=== PATIENT | female | born 1990 | race African-American/Black ===

== ENCOUNTER 2017-03-15 21:57 | Emergency (ER) | payer MEDICAID ==
[~2017-03-15] VITALS: Ht 170.2 cm; Wt 82.0 kg
[2017-03-16] MEDS ORDERED: ONDANSETRON 4MG ODT PO ONE (04:30)
[2017-03-16 04:36] LABS: BASOPHILS % 0.2 % (0.0-2.0); HEMOGLOBIN. 12.9 g/dL (12.0-16.0); LYMPHOCYTES % 14.8 % (20.0-50.0); MEAN CORPUSCULAR HEMOGLOBIN 28.1 pg (28.0-32.0); MEAN CORPUSCULAR VOLUME 86.8 fL (81.0-99.0); MEAN PLATELET VOLUME 8.6 fl (7.4-10.4); MONOCYTES % 3.1 % (2.0-8.0); NEUTROPHILS % 81.9 % (40.0-76.0); PLATELET 355 x1000/uL (130-400); RED BLOOD CELL COUNT 4.61 mill/uL (4.2-5.4)
[2017-03-16 04:52] LABS: CARBON DIOXIDE 30 mEq/L (21-32); CHLORIDE 106 mEq/L (98-107)
[2017-03-16 07:42] VITALS: BP 106/61
== END 2017-03-16 08:31 | disposition home or self-care (01) ==
LOC: ER 22:05
DX: R11.2 Nausea with vomiting, unspecified (principal); S62.340A Nondisplaced fracture of base of second metacarpal bone, right hand, initial encounter for closed fracture; X58.XXXA Exposure to other specified factors, initial encounter; Y93.89 Activity, other specified; Y92.89 Other specified places as the place of occurrence of the external cause
CPT/HCPCS: 29130; 36415; 73130; 80053; 81025; 85025; 99285; Q0162; Z7610

== ENCOUNTER 2018-05-28 03:08 | Observation (INO) | payer MEDICAID ==
[~2018-05-28] VITALS: Ht 157.5 cm; Wt 72.6 kg
[2018-05-28] MEDS ORDERED: PREN1TAB78 MT (04:19)
[2018-05-28] MEDS ORDERED: LACTATED RINGERS 1,000 ML IV SCH (04:45)
[2018-05-28] MEDS ORDERED: ACETAMINOPHEN 325MG TABLET PO SCH (04:45)
[2018-05-28] MEDS ORDERED: CEFAZOLIN 2,000 MG in DEXT 5% WATER 100 ML IV SCH (05:00)
== END 2018-05-28 06:45 | disposition home or self-care (01) ==
LOC: L&D 03:08
PROVIDERS: ADMIT Obstetrics & Gynecology; ATTEND Obstetrics & Gynecology
DX: O26.893 Other specified pregnancy related conditions, third trimester (principal); R10.30 Lower abdominal pain, unspecified; M54.9 Dorsalgia, unspecified; Z3A.32 32 weeks gestation of pregnancy
CPT/HCPCS: 96365; 99281; G0378; J0690; J7120; 96360; J7060